=== PATIENT | female | born 1955 | race Caucasian/White ===

== ENCOUNTER → 2016-05-24 | Outpatient (CLI) | payer OTHER, BC ==
[~2016-05-24] MED LIST: ALEVE220 MG PO; ALLEGRA ALLERGY60 MG PO; BIOTIN5 M1 PO; CEFTIN 250 MG250 MG PO; CEFTIN500 MG PO; CENTRUM SILVER1 EAC4 PO; CITRACAL + D M1 EACH PO; COQ-10100 MG PO; CRANBERRY450 M2 PO; ESTRACE1 TUBE VAG; GAMMAGLOBULIN; MACRODANTIN100 MG; METAMUCIL1 EAC1 PO; MOBIC7.5 MG PO; NAPROSYN500 MG PO; NORCO 5-325 TA1 EACH PO; PEPCID20 MG PO; PEPTO-BISMOL1 TAB PO; PRIVIGEN50 ML IV; PROBIOTIC1 EAC2 PO; PYRIDIUM200 MG PO; RETIN-A20 GM TOP; TRAZODONE HCL50 MG PO; VAGIFEM10 MCG VG; ZOFRAN ODT4 MG PO
== END ==
LOC: RAD 13:31
DX: Z12.31 Encounter for screening mammogram for malignant neoplasm of breast (principal)

== ENCOUNTER → 2016-07-25 | Outpatient (CLI) | payer OTHER, BC ==
[~2016-07-25] VITALS: Ht 157.5 cm; Wt 52.2 kg
--- NOTE | ~2016-07-25 | P ---
[facility] [place] [address] PROCEDURE REPORT Name: SREEKANTH MENDEZ Room #: REG [facility] Starr.#: [id number] Admission: 07/25/16 Attend Phys: Nathan Armas Discharge: Date of : 55 Report #: [id number] THIS REPORT FOR: //name// CC: Nathan Almodovar MD DATE OF SERVICE: 07/25/2016 PROCEDURE PERFORMED: Colonoscopy. HISTORY OF PRESENT ILLNESS: The patient is a 61-year-old female who presents today for a screening colonoscopy. She has a family history of colon cancer in her mother. Last colonoscopy was 5 years ago. She denies any symptoms at this time. DESCRIPTION OF PROCEDURE: The risks and benefits of the procedure were explained to the patient, those risks including but not limited to bleeding, perforation, the risk of sedation. She understood these risks and gave informed consent. Sedation was given using propofol per anesthesia. Next, a digital rectal exam was initially performed, which was normal. Next, using a standard [employer] colonoscope, the scope was placed in the patient's anus and advanced under direct vision to the cecum. The overall prep was excellent. The cecum and ileocecal valve were normal in appearance. The ascending, transverse, descending and sigmoid colon were all normal. The rectal mucosa was normal. On retroflexion, no abnormalities were noted. The scope was then withdrawn and the procedure terminated. The patient tolerated the procedure well. IMPRESSION: Normal colonoscopy. RECOMMENDATIONS: Repeat colonoscopy in 5 years due to family history. Thank you for allowing me to participate in her care. By: [id number] Nathan Rosales MD /nt
== END | disposition home or self-care (01) ==
LOC: GI 07:31
DX: Z12.11 Encounter for screening for malignant neoplasm of colon (principal); R53.83 Other fatigue; M81.0 Age-related osteoporosis without current pathological fracture; Z90.49 Acquired absence of other specified parts of digestive tract; Z80.0 Family history of malignant neoplasm of digestive organs
CPT/HCPCS: 62110; 62900

== ENCOUNTER → 2016-11-14 | Outpatient (CLI) | payer OTHER, BC | LOC: RAD 12:50 | DX: R05 Cough (principal); R06.02 Shortness of breath ==

== ENCOUNTER → 2017-05-28 | Outpatient (CLI) | payer OTHER, BC | LOC: RAD 02:24 | DX: Z12.31 Encounter for screening mammogram for malignant neoplasm of breast (principal) ==

== ENCOUNTER → 2018-06-04 | Outpatient (CLI) | payer OTHER | LOC: RAD 01:41 | DX: Z12.31 Encounter for screening mammogram for malignant neoplasm of breast (principal) ==

== ENCOUNTER → 2019-07-20 | Outpatient (CLI) | payer OTHER | LOC: RAD 14:39 | DX: Z12.31 Encounter for screening mammogram for malignant neoplasm of breast (principal) ==

== ENCOUNTER → 2020-08-08 | Outpatient (CLI) | payer OTHER | LOC: BC 14:41 | PROVIDERS: ATTEND Specialist | DX: Z12.31 Encounter for screening mammogram for malignant neoplasm of breast (principal) ==

== ENCOUNTER → 2021-01-03 | Outpatient (CLI) | payer OTHER, MEDICARE | LOC: BC 13:39 | PROVIDERS: ATTEND Specialist | DX: N64.4 Mastodynia (principal); R92.8 Other abnormal and inconclusive findings on diagnostic imaging of breast ==